=== PATIENT | female | born 1975 | race Caucasian/White ===

== ENCOUNTER 2017-07-11 02:30 | Emergency (ER) | payer MEDICAID ==
[~2017-07-11] VITALS: Ht 152.4 cm; Wt 65.7 kg
[~2017-07-11 02:30] MED LIST: MOT200T PO
[2017-07-11] MEDS ORDERED: diphenhydrAMINE 25mg capsule PO ONE (02:50)
[2017-07-11] MEDS ORDERED: triamcinolone acetonide 40mg/ml inj IM ONE (02:50)
[2017-07-11] MEDS ORDERED: predniSONE 20 mg tablet PO ONE (02:50)
[2017-07-11] MEDS ORDERED: PRED20TA PO (02:52)
[2017-07-11] MEDS ORDERED: TRIA15CR61 TOP (02:52)
[2017-07-11] MEDS ORDERED: DIPH25CA83 PO (02:52)
[2017-07-11 03:02] VITALS: BP 101/73
== END 2017-07-11 03:28 | disposition home or self-care (01) ==
LOC: ER 02:31
DX: L23.7 Allergic contact dermatitis due to plants, except food (principal)
CPT/HCPCS: 96372; 99283; J3301; J7512; Q0163

== ENCOUNTER 2018-06-23 02:19 | Emergency (ER) | payer MEDICAID ==
[~2018-06-23] VITALS: Ht 152.4 cm; Wt 57.6 kg
[~2018-06-23 02:19] MED LIST changes: +DIPH25CA83 PO; +ONDA8TAB6 PO
[2018-06-23] MEDS ORDERED: naproxen 500mg tablet PO ONE ×2 (03:55→04:00)
[2018-06-23] MEDS ORDERED: NAPR-56 PO (04:00)
[2018-06-23] MEDS ORDERED: diphenhydrAMINE 25mg capsule PO ONE (04:00)
[2018-06-23] MEDS ORDERED: CEPH250T PO (04:01)
[2018-06-23 04:11] VITALS: BP 119/65
== END 2018-06-23 04:19 | disposition home or self-care (01) ==
LOC: ER 02:19
DX: M25.532 Pain in left wrist (principal); F15.90 Other stimulant use, unspecified, uncomplicated; L81.8 Other specified disorders of pigmentation
CPT/HCPCS: 99283; Q0163

== ENCOUNTER 2018-11-27 16:42 | Emergency (ER) | payer MEDICAID ==
[~2018-11-27] VITALS: Ht 152.4 cm; Wt 58.2 kg
[2018-11-27] MEDS ORDERED: triamcinolone acetonide 40mg/ml inj IM ONE (19:15)
[2018-11-27] MEDS ORDERED: PRED10TA23 PO (19:19)
[2018-11-27] MEDS ORDERED: HYDR28CR14 TOP (19:19)
[2018-11-27 19:31] VITALS: BP 135/72
== END 2018-11-27 19:30 | disposition home or self-care (01) ==
LOC: ER 16:42
DX: L23.7 Allergic contact dermatitis due to plants, except food (principal); F15.90 Other stimulant use, unspecified, uncomplicated; F10.10 Alcohol abuse, uncomplicated; Z79.899 Other long term (current) drug therapy; Y90.9 Presence of alcohol in blood, level not specified
CPT/HCPCS: 96372; 99283; J3301

== ENCOUNTER 2019-11-21 01:44 | Emergency (ER) | payer MEDICAID ==
[~2019-11-21] VITALS: Ht 165.1 cm; Wt 59.1 kg
[~2019-11-21 01:44] MED LIST changes: +HYDR28CR14 TOP
[2019-11-21] MEDS ORDERED: normal saline 1000ML IV soln IV ONE (02:35)
[2019-11-21] MEDS ORDERED: piperacillin/tazo 4.5gm/100ml 100 ML IV ONE (02:35)
[2019-11-21] MEDS ORDERED: vancomycin/NS 1 GM ADD-VANTAGE 250 ML IV ONE (02:40)
[2019-11-21] MEDS ORDERED: ketorolac trometh. 30mg/ml inj. IV ONE (03:10)
[2019-11-21 03:14] LABS: BASOPHILS % (AUTO) 0.3 % (0-1); EOSINOPHILS % (AUTO) 0.4 % (0-6); HEMATOCRIT 40.8 % (35.0-45.0); HEMOGLOBIN 13.9 g/dl (12.0-16.0); LYMPHOCYTES # (AUTO) 1.3 X10'3 (1.1-4.8); LYMPHOCYTES % (AUTO) 15.1 % (21-51); MEAN CORPUSCULAR HEMOGLOBIN 30.9 PG (27.0-31.0); MEAN CORPUSCULAR VOLUME 90.9 FL (78-98); MEAN PLATELET VOLUME 7.7 FL (7.4-10.4); MONOCYTES # (AUTO) 0.5 X10'3 (0-0.9); MONOCYTES % (AUTO) 5.2 % (2-12); NEUTROPHILS # (AUTO) 7.1 X10'3 (1.8-7.7); PLATELET COUNT 294 X10'3 (140-440); RED BLOOD COUNT 4.48 X10'6 (4.20-5.60); RED CELL DISTRIBUTION WIDTH 12.7 % (11.5-14.5); WHITE BLOOD COUNT 8.9 X10'3 (4.5-11.0)
[2019-11-21 03:33] LABS: ALANINE AMINOTRANSFERASE 22 U/L (12-78); ALBUMIN 3.7 G/DL (3.4-5.0); ALKALINE PHOSPHATASE 76 IU/L (46-116); ANION GAP 12 (8-16); ASPARTATE AMINO TRANSFERASE 17 U/L (10-37); BILIRUBIN,TOTAL 0.2 MG/DL (0.1-1.0); BLOOD UREA NITROGEN 10 MG/DL (7-18); BUN/CREATININE RATIO 12.3 (6.6-38.0); CALCIUM 8.7 MG/DL (8.5-10.1); CHLORIDE 104 MMOL/L (99-107); CREATININE 0.81 MG/DL (0.40-0.90); GLUCOSE 91 MG/DL (70-104); POTASSIUM 4.2 MMOL/L (3.5-5.1); SODIUM 141 MMOL/L (135-145); TOTAL CARBON DIOXIDE 25.5 MMOL/L (24-32); TOTAL PROTEIN 7.3 G/DL (6.4-8.2); eGFR 78 ML/MIN
[2019-11-21 03:38] LABS: PARTIAL THROMBOPLASTIN TIME 26 SECONDS (22-32)
[2019-11-21] MEDS ORDERED: NO HOME MEDS (04:14)
[2019-11-21 04:18] LABS: CLARITY,URINE CLEAR (Clear); COLOR,URINE YELLOW (Yellow); GLUCOSE, URINE NEGATIVE (Neg); KETONES,URINE NEGATIVE (Neg); LEUKOCYTE ESTERASE ,URINE NEGATIVE (Neg); NITRITES, URINE NEGATIVE (Neg); OCCULT BLOOD,URINE NEGATIVE (Neg); PROTEIN,URINE NEGATIVE (Neg); UROBILINOGEN,URINE 0.2 E.U/dL (0.2-1.0)
[2019-11-21 04:21] LABS: UA COLLECTION TYPE CLN CATCH MIDSTREAM
[2019-11-21 04:30] LABS: URINE AMPHETAMINE SCREEN POSITIVE (Neg); URINE BARBITUATE SCREEN NEGATIVE (Neg); URINE BENZODIAZEPINES SCREEN NEGATIVE (Neg); URINE CANNABINOID SCREEN NEGATIVE (Neg); URINE COCAINE SCREEN NEGATIVE (Neg); URINE METHADONE SCREEN NEGATIVE (Neg); URINE OPIATE SCREEN NEGATIVE (Neg); URINE PHENCYCLIDINE SCREEN NEGATIVE (Neg)
[2019-11-21 04:32] LABS: URINE HCG NEGATIVE (NEG)
[2019-11-21] MEDS ORDERED: iohexol 300mg/ml 100ml inj. ONE (04:39)
[2019-11-21] MEDS ORDERED: ondansetron 4mg rapidly disintigrating tab PO ONE (05:45)
[2019-11-21] MEDS ORDERED: TETanus/Pertussis (Acell)/Diphther VAC/PF (Tdap-Adult) 0.5ml syringe IMVAC ONE (05:45)
[2019-11-21] MEDS ORDERED: AMOX-419 PO (05:45)
[2019-11-21] MEDS ORDERED: amox tr/potassium clavulanate 875/125mg TAB PO ONE (05:45)
[2019-11-21 06:18] VITALS: BP 100/53
== END 2019-11-21 06:20 | disposition home or self-care (01) ==
LOC: ER 01:44
DX: L03.211 Cellulitis of face (principal); R22.0 Localized swelling, mass and lump, head; F10.10 Alcohol abuse, uncomplicated; F15.90 Other stimulant use, unspecified, uncomplicated; Z79.2 Long term (current) use of antibiotics; Y90.9 Presence of alcohol in blood, level not specified
CPT/HCPCS: 36415; 70491; 71045; 80053; 80305; 81003; 81025; 83605; 83735; 84145; 85025; 85610; 85730; 87040; 90471; 90715; 93005; 96365; 96375; 99285; J1885; J2543; J3370; J7030; Q9967

== ENCOUNTER 2023-05-01 19:07 | Emergency (ER) | payer MEDICAID ==
[~2023-05-01] VITALS: Ht 152.4 cm; Wt 65.6 kg
[~2023-05-01 19:07] MED LIST changes: -DIPH25CA83 PO; -HYDR28CR14 TOP; -MOT200T PO; +NO HOME MEDS; -ONDA8TAB6 PO
[2023-05-01 19:10] VITALS: BP 130/78; PULSE 105; RESP 18; TEMP 98.5; O2SAT 99
[2023-05-01] MEDS ORDERED: dexamethasone sod phosphate 10mg/ml inj IM STA (20:18)
[2023-05-01] MEDS ORDERED: diphenhydrAMINE 50 mg/ml inj IM ONE (20:20)
[2023-05-01] MEDS ORDERED: CLIN300C53 PO (20:48)
[2023-05-01] MEDS ORDERED: METH4TAB81 PO (20:48)
== END 2023-05-01 21:22 | disposition home or self-care (01) ==
LOC: ER 19:07
DX: S60.561A Insect bite (nonvenomous) of right hand, initial encounter (principal); W57.XXXA Bitten or stung by nonvenomous insect and other nonvenomous arthropods, initial encounter; Y93.89 Activity, other specified; Y92.89 Other specified places as the place of occurrence of the external cause; Y99.8 Other external cause status
CPT/HCPCS: 96372; 99284; J1100; J1200

== ENCOUNTER 2023-11-26 20:11 | Emergency (ER) | payer MEDICAID ==
[~2023-11-26] VITALS: Ht 152.4 cm; Wt 58.2 kg
[~2023-11-26 20:11] MED LIST changes: +METH4TAB81 PO
[2023-11-26] MEDS ORDERED: PRED20TA PO (23:17)
[2023-11-26] MEDS ORDERED: PHEN-716 PO (23:17)
[2023-11-26] MEDS ORDERED: TRIA15CR61 TOP (23:17)
[2023-11-26 23:25] LABS: BILIRUBIN,URINE NEGATIVE (Neg); CLARITY,URINE SLIGHTLY CLOUDY (Clear); COLOR,URINE YELLOW (Yellow); GLUCOSE, URINE NEGATIVE (Neg); KETONES,URINE TRACE mg/dl (Neg); LEUKOCYTE ESTERASE ,URINE NEGATIVE (Neg); NITRITES, URINE POSITIVE (Neg); OCCULT BLOOD,URINE NEGATIVE (Neg); PROTEIN,URINE NEGATIVE (Neg); UROBILINOGEN,URINE 0.2 E.U/dL (0.2-1.0)
[2023-11-26] MEDS: dexamethasone sod phosphate 10mg/ml inj IM STA (23:26)
[2023-11-26 23:32] LABS: UA COLLECTION TYPE NON-SPECIFIED
[2023-11-26 23:34] LABS: BACTERIA,URINE 4+ /HPF (Neg); MUCUS STRANDS MANY /LPF (Neg); RBC,URINE 0-2 /HPF (0-2); SQUAMOUS EPITHELIAL CELL,UR MODERATE /LPF (FEW)
[2023-11-26 23:35] LABS: TRANSITIONAL EPI CELLS,URINE FEW /HPF
[2023-11-26] MEDS: CefTRIAXone 1000mg IM Kit (w/lidocaine diluent) IM ONE (23:44)
[2023-11-26 23:51] VITALS: BP 126/87; PULSE 94; RESP 16; TEMP 98.3; O2SAT 100
== END 2023-11-26 23:54 | disposition home or self-care (01) ==
LOC: ER 20:12
DX: L23.7 Allergic contact dermatitis due to plants, except food (principal); N39.0 Urinary tract infection, site not specified; F15.90 Other stimulant use, unspecified, uncomplicated; Z88.2 Allergy status to sulfonamides; Z79.899 Other long term (current) drug therapy
CPT/HCPCS: 81001; 87088; 96372; 99284; J0696; J1100; 87077; 87186

== ENCOUNTER 2023-12-27 00:06 | Emergency (ER) | payer MEDICAID ==
[~2023-12-27] VITALS: Ht 152.4 cm; Wt 64.2 kg
[~2023-12-27 00:06] MED LIST changes: +PHEN-716 PO; +TRIA15CR61 TOP
[2023-12-27 00:11] VITALS: TEMP 98.5
[2023-12-27] MEDS ORDERED: ketorolac trometh. 30mg/ml inj. IV ONE (00:15)
[2023-12-27 00:41] LABS: BASOPHILS % (AUTO) 0.7 % (0-1); EOSINOPHILS # (AUTO) 0.1 X10'3 (0-0.9); EOSINOPHILS % (AUTO) 0.7 % (0-6); HEMATOCRIT 37.3 % (35.0-45.0); HEMOGLOBIN 12.8 g/dl (12.0-16.0); LYMPHOCYTES # (AUTO) 1.6 X10'3 (1.1-4.8); LYMPHOCYTES % (AUTO) 23.3 % (21-51); MEAN CORPUSCULAR HEMOGLOBIN 31.2 PG (27.0-31.0); MEAN CORPUSCULAR HGB CONC 34.3 g/dL (33.0-36.5); MEAN CORPUSCULAR VOLUME 90.8 FL (78-98); MEAN PLATELET VOLUME 7.1 FL (7.4-10.4); MONOCYTES # (AUTO) 0.4 X10'3 (0-0.9); MONOCYTES % (AUTO) 5.7 % (2-12); NEUTROPHILS # (AUTO) 4.9 X10'3 (1.8-7.7); NEUTROPHILS % (AUTO) 69.6 % (42-75); PLATELET COUNT 286 X10'3 (140-440); RED BLOOD COUNT 4.11 X10'6 (4.20-5.60); RED CELL DISTRIBUTION WIDTH 12.6 % (11.5-14.5)
[2023-12-27 00:57] LABS: ALANINE AMINOTRANSFERASE 29 U/L (12-78); ALBUMIN 3.1 G/DL (3.4-5.0); ALBUMIN/GLOBULIN RATIO 0.8 (1.1-1.5); ALKALINE PHOSPHATASE 78 IU/L (46-116); ANION GAP 8 (8-16); ASPARTATE AMINO TRANSFERASE 16 U/L (10-37); BILIRUBIN,TOTAL 0.4 MG/DL (0.1-1.0); BLOOD UREA NITROGEN 12 MG/DL (7-18); BUN/CREATININE RATIO 10.8 (10.0-20.0); CALCIUM 8.8 MG/DL (8.5-10.1); CHLORIDE 100 MMOL/L (99-107); CREATININE 1.11 MG/DL (0.40-0.90); GLUCOSE 133 MG/DL (70-104); POTASSIUM 3.4 MMOL/L (3.5-5.1); SODIUM 135 MMOL/L (135-145); TOTAL CARBON DIOXIDE 26.6 MMOL/L (24-32); eCRCL 45 ML/MIN; eGFR 53 ML/MIN
[2023-12-27 01:34] LABS: BILIRUBIN,URINE NEGATIVE (Neg); CLARITY,URINE CLOUDY (Clear); COLOR,URINE YELLOW (Yellow); GLUCOSE, URINE NEGATIVE (Neg); KETONES,URINE NEGATIVE (Neg); LEUKOCYTE ESTERASE ,URINE LARGE (Neg); OCCULT BLOOD,URINE TRACE-INTACT (Neg); PROTEIN,URINE TRACE mg/dl (Neg); UROBILINOGEN,URINE 0.2 E.U/dL (0.2-1.0)
[2023-12-27 01:35] LABS: URINE HCG NEGATIVE (NEG)
[2023-12-27 01:36] LABS: NITRITES, URINE POSITIVE (Neg); UA COLLECTION TYPE CLN CATCH MIDSTREAM
[2023-12-27] MEDS: normal saline 1000ml 1,000 ML IV ONE (01:42)
[2023-12-27] MEDS: ketorolac tromethamine 15mg/ml inj. IV ONE (01:43)
[2023-12-27 01:44] LABS: SQUAMOUS EPITHELIAL CELL,UR MANY /LPF (FEW); WBC,URINE TNTC /HPF (0-4)
[2023-12-27 01:45] LABS: BACTERIA,URINE 3+ /HPF (Neg); RBC,URINE 0-2 /HPF (0-2); WBC CLUMPS,URINE MANY /HPF (NEGATIVE)
[2023-12-27] MEDS: FOSFOMYCIN TROMETHAMINE 3 GM PACKET PO ONE (02:00)
[2023-12-27 02:21] VITALS: BP 97/57; PULSE 89; O2SAT 100
[2023-12-27 02:27] VITALS: RESP 16
== END 2023-12-27 02:25 | disposition home or self-care (01) ==
LOC: ER 00:07
DX: N39.0 Urinary tract infection, site not specified (principal); F15.90 Other stimulant use, unspecified, uncomplicated; Z88.2 Allergy status to sulfonamides; Z88.5 Allergy status to narcotic agent; Z79.899 Other long term (current) drug therapy
CPT/HCPCS: 36415; 80053; 81001; 81025; 85025; 96361; 96374; 99283; J1885; J7030

== ENCOUNTER 2024-03-18 20:50 | Emergency (ER) | payer MEDICAID ==
[~2024-03-18] VITALS: Ht 152.4 cm; Wt 62.6 kg
[~2024-03-18 20:50] MED LIST changes: -TRIA15CR61 TOP
[2024-03-18 21:55] LABS: BASOPHILS % (AUTO) 0.6 % (0-1); EOSINOPHILS # (AUTO) 0.1 X10'3 (0-0.9); EOSINOPHILS % (AUTO) 1.8 % (0-6); HEMATOCRIT 40.2 % (35.0-45.0); HEMOGLOBIN 13.6 g/dl (12.0-16.0); LYMPHOCYTES # (AUTO) 1.8 X10'3 (1.1-4.8); LYMPHOCYTES % (AUTO) 30.7 % (21-51); MEAN CORPUSCULAR HEMOGLOBIN 31.2 PG (27.0-31.0); MEAN CORPUSCULAR HGB CONC 33.7 g/dL (33.0-36.5); MEAN CORPUSCULAR VOLUME 92.7 FL (78-98); MEAN PLATELET VOLUME 7.3 FL (7.4-10.4); MONOCYTES # (AUTO) 0.4 X10'3 (0-0.9); MONOCYTES % (AUTO) 5.9 % (2-12); NEUTROPHILS # (AUTO) 3.6 X10'3 (1.8-7.7); PLATELET COUNT 306 X10'3 (140-440); RED BLOOD COUNT 4.34 X10'6 (4.20-5.60); RED CELL DISTRIBUTION WIDTH 12.2 % (11.5-14.5)
[2024-03-18 22:06] LABS: ALANINE AMINOTRANSFERASE 25 U/L (12-78); ALBUMIN 3.8 G/DL (3.4-5.0); ALKALINE PHOSPHATASE 74 IU/L (46-116); ANION GAP 9 (8-16); ASPARTATE AMINO TRANSFERASE 9 U/L (10-37); BILIRUBIN,TOTAL 0.3 MG/DL (0.1-1.0); BLOOD UREA NITROGEN 15 MG/DL (7-18); BUN/CREATININE RATIO 18.8 (10.0-20.0); CALCIUM 9.2 MG/DL (8.5-10.1); CHLORIDE 102 MMOL/L (99-107); GLUCOSE 108 MG/DL (70-104); LIPASE 24 U/L (16-77); POTASSIUM 3.6 MMOL/L (3.5-5.1); SODIUM 140 MMOL/L (135-145); TOTAL CARBON DIOXIDE 29.3 MMOL/L (24-32); TOTAL PROTEIN 7.6 G/DL (6.4-8.2); eCRCL 62 ML/MIN; eGFR 77 ML/MIN
[2024-03-19 00:33] LABS: URINE HCG NEGATIVE (NEG)
[2024-03-19 00:41] LABS: BILIRUBIN,URINE NEGATIVE (Neg); CLARITY,URINE CLOUDY (Clear); COLOR,URINE YELLOW (Yellow); GLUCOSE, URINE NEGATIVE (Neg); KETONES,URINE NEGATIVE (Neg); LEUKOCYTE ESTERASE ,URINE SMALL (Neg); NITRITES, URINE NEGATIVE (Neg); OCCULT BLOOD,URINE SMALL (Neg); PROTEIN,URINE NEGATIVE (Neg); UROBILINOGEN,URINE 0.2 E.U/dL (0.2-1.0)
[2024-03-19 00:46] LABS: UA COLLECTION TYPE CLN CATCH MIDSTREAM
[2024-03-19 01:02] LABS: BACTERIA,URINE 1+ /HPF (Neg); MUCUS STRANDS FEW /LPF (Neg); RENAL CELLS, URINE FEW /HPF; SQUAMOUS EPITHELIAL CELL,UR MODERATE /LPF (FEW); TRANSITIONAL EPI CELLS,URINE FEW /HPF; WBC,URINE 30-50 /HPF (0-4)
[2024-03-19] MEDS ORDERED: CEPH-585 PO (01:15)
[2024-03-19] MEDS: cephalexin 250mg capsule PO ONE (02:06)
[2024-03-19 02:07] VITALS: BP 100/47; PULSE 98; RESP 14; TEMP 98.2; O2SAT 97
== END 2024-03-19 02:44 | disposition home or self-care (01) ==
LOC: ER 20:51
DX: N39.0 Urinary tract infection, site not specified (principal); N93.9 Abnormal uterine and vaginal bleeding, unspecified; F15.10 Other stimulant abuse, uncomplicated; Z88.1 Allergy status to other antibiotic agents; Z88.2 Allergy status to sulfonamides; Z88.5 Allergy status to narcotic agent
CPT/HCPCS: 36415; 80053; 81001; 81025; 83690; 85025; 87088; 99283

== ENCOUNTER 2024-07-22 17:23 | Emergency (ER) | payer MEDICAID ==
[~2024-07-22] VITALS: Ht 152.4 cm; Wt 59.1 kg
[2024-07-22 17:30] VITALS: BP 126/79; PULSE 92; RESP 20; TEMP 98.4; O2SAT 98
[2024-07-22 18:02] LABS: BASOPHILS % (AUTO) 0.5 % (0-1); EOSINOPHILS # (AUTO) 0.1 X10'3 (0-0.9); EOSINOPHILS % (AUTO) 1.1 % (0-6); HEMATOCRIT 37.6 % (35.0-45.0); HEMOGLOBIN 13.2 g/dl (12.0-16.0); LYMPHOCYTES # (AUTO) 1.9 X10'3 (1.1-4.8); LYMPHOCYTES % (AUTO) 22.8 % (21-51); MEAN CORPUSCULAR HEMOGLOBIN 31.5 PG (27.0-31.0); MEAN PLATELET VOLUME 7.2 FL (7.4-10.4); MONOCYTES # (AUTO) 0.7 X10'3 (0-0.9); MONOCYTES % (AUTO) 8.5 % (2-12); NEUTROPHILS # (AUTO) 5.6 X10'3 (1.8-7.7); NEUTROPHILS % (AUTO) 67.1 % (42-75); PLATELET COUNT 434 X10'3 (140-440); RED BLOOD COUNT 4.18 X10'6 (4.20-5.60); RED CELL DISTRIBUTION WIDTH 12.3 % (11.5-14.5); WHITE BLOOD COUNT 8.3 X10'3 (4.5-11.0)
[2024-07-22 18:16] LABS: ALBUMIN 3.4 G/DL (3.4-5.0); ANION GAP 8 (8-16); BLOOD UREA NITROGEN 15 MG/DL (7-18); BUN/CREATININE RATIO 21.7 (10.0-20.0); CALCIUM 8.4 MG/DL (8.5-10.1); CHLORIDE 104 MMOL/L (99-107); CREATININE 0.69 MG/DL (0.40-0.90); GLUCOSE 97 MG/DL (70-104); POTASSIUM 3.9 MMOL/L (3.5-5.1); SODIUM 140 MMOL/L (135-145); TOTAL CARBON DIOXIDE 28.4 MMOL/L (24-32); eCRCL 72 ML/MIN; eGFR > 90 ML/MIN
== END 2024-07-22 20:51 | disposition left against medical advice (07) ==
LOC: ER 17:24
DX: J00 Acute nasopharyngitis [common cold] (principal); R05.9 Cough, unspecified; R68.89 Other general symptoms and signs; R06.02 Shortness of breath; R30.0 Dysuria; Z88.5 Allergy status to narcotic agent; Z88.2 Allergy status to sulfonamides; Z53.21 Procedure and treatment not carried out due to patient leaving prior to being seen by health care provider
CPT/HCPCS: 36415; 71046; 80048; 85025